=== PATIENT | male | born 1975 | race Caucasian/White ===

== ENCOUNTER 2017-03-28 19:33 | Emergency (ER) | payer OTHER ==
[~2017-03-28 19:33] MED LIST: ATARAX PO; BUPROPION HCL75 MG PO; CELEXA PO; CIPRO PO; COMBIVENT MININEB INH; ERYTHROMYCIN O3.5 GM OD; FLAGYL PO; HCTZ PO; HYDROCORTISONE30 G2 EXT; IRON1 TAB PO; KEFLEX PO; LEVAQUIN750 MG PO; LEVOTHYROXINE50 MCG PO; LORTAB 7.5-3251 EACH PO; PHENERGAN PO; RISPERIDONE1 MG PO
== END 2017-03-28 22:52 | disposition home or self-care (01) ==
LOC: SED 19:33
DX: T15.01XA Foreign body in cornea, right eye, initial encounter (principal); F17.210 Nicotine dependence, cigarettes, uncomplicated; Z98.890 Other specified postprocedural states; X58.XXXA Exposure to other specified factors, initial encounter; Y92.009 Unspecified place in unspecified non-institutional (private) residence as the place of occurrence of the external cause
CPT/HCPCS: 65220; 99283

== ENCOUNTER 2017-07-06 13:10 | Emergency (ER) | payer SELFPAY ==
[~2017-07-06] VITALS: Ht 177.8 cm; Wt 145.1 kg
--- NOTE | ~2017-07-06 | CR181 ---
[facility] A Service of [facility] & [facility] RADIOLOGY TEXT RESULTS PATIENT: CHERELLE ALSTON LOCATION: [facility] : 75 UNIT #: [id number] AGE: [address]: Spring Varela SEX: M ORDER DR: [id number] [place] [address] [place], [place] [address] [id number] E MR#: [id number] Acc #: [id number] NAME: CHERELLE ALSTON. : 1975 SEX: M STUDY DATE/TIME: 07/06/2017 14:22 UNIT: [facility] ROOM: STUDY DESCRIPTION: CR Lumbar Spine 2 or 3 Views Attending Physician: Spring Varela P.A.-C. Ordering Physician: Spring Varela P.A.-C. Primary Care Physician: Primary Care Physician No MEDICAL IMAGING REPORT This report is preliminary unless electronic signature is present EXAM Lumbar spine 07/06/2017 HISTORY Low back pain after fall out of bed two weeks ago. FINDINGS AP and lateral projections of the lumbar segment show good mineralization of both anterior and posterior elements. They are all anatomically normal without indication of fracture, dislocation, or malignant change of a sclerotic or lytic type. There is no congenital defect noted. The sacroiliac joints are normal. IMPRESSION Normal lumbar spine. Dictated by... Imer Caballero Jr., M.D. THIS IS AN ELECTRONICALLY VERIFIED REPORT Imer Caballero Jr., M.D. at 07/06/2017 10:34 PM ZONIA/almaz TD: 07/06/2017 15:52 JOB #: [id number] MEDICAL IMAGING REPORT Page 1 of 1 COPY
--- NOTE | ~2017-07-06 | CR172 ---
[facility] A Service of [facility] & [facility] RADIOLOGY TEXT RESULTS PATIENT: CHERELLE ALSTON LOCATION: [facility] : 75 UNIT #: [id number] AGE: [address]: Spring Varela SEX: M ORDER DR: [id number] [facility] [address] [place], [place] [address] [id number] E MR#: [id number] Acc #: [id number] NAME: CHERELLE ALSTON. : 1975 SEX: M STUDY DATE/TIME: 07/06/2017 14:21 UNIT: [facility] ROOM: STUDY DESCRIPTION: CR Knee 3 Views Lt Attending Physician: Spring Varela P.A.-C. Ordering Physician: Spring Varela P.A.-C. Primary Care Physician: No Primary Care Physician MEDICAL IMAGING REPORT This report is preliminary unless electronic signature is present EXAM Left knee, 07/06/2017. INDICATIONS Knee pain for 2 weeks after falling out of bed. FINDINGS Three views of the left knee were obtained. There is no fracture or malalignment. Joint effusion may be present. The exam is otherwise negative. IMPRESSION The joint effusion may be present. The knee is otherwise normal. Dictated by... Imer Caballero Jr., M.D. THIS IS AN ELECTRONICALLY VERIFIED REPORT Imer Caballero Jr., M.D. at 07/06/2017 10:34 PM ZONIA/norbert TD: 07/06/2017 15:52 JOB #: [id number] MEDICAL IMAGING REPORT Page 1 of 1 COPY
--- NOTE | ~2017-07-06 | US85 ---
[facility] A Service of [facility] & [facility] RADIOLOGY TEXT RESULTS PATIENT: CHERELLE ALSTON LOCATION: [facility] : 75 UNIT #: [id number] AGE: [address]: Spring Varela SEX: M ORDER DR: [id number] [facility] [address] [place], [place] [address] [id number] E MR#: [id number] Acc #: [id number] NAME: CHERELLE ALSTON. : 1975 SEX: M STUDY DATE/TIME: 07/06/2017 13:52 UNIT: [facility] ROOM: STUDY DESCRIPTION: [facility] Attending Physician: Spring Varela P.A.-C. Ordering Physician: Spring Varela P.A.-C. Primary Care Physician: Primary Care Physician No MEDICAL IMAGING REPORT This report is preliminary unless electronic signature is present EXAM Left lower extremity venous duplex 07/06/2017 HISTORY Left lower extremity pain for 2 weeks. Evaluate for deep vein thrombosis. History of lung carcinoma. TECHNIQUE Venous ultrasound examination of the left lower extremity was performed using grayscale, spectral Doppler and color flow Doppler imaging. FINDINGS The examination is negative. There is no evidence of left lower extremity deep venous thrombus from the groin to the lower calf. Visualized greater saphenous vein is also patent. IMPRESSION Negative examination. No evidence of left lower extremity deep venous thrombosis. Dictated by... Ignacio Sevilla M.D. THIS IS AN ELECTRONICALLY VERIFIED REPORT Ignacio Sevilla M.D. at 07/07/2017 8:38 AM VINCENZO/almaz TD: 07/06/2017 15:16 JOB #: [id number] MEDICAL IMAGING REPORT Page 1 of 1 COPY
== END 2017-07-06 15:15 | disposition home or self-care (01) ==
LOC: CFTX 13:10 → CED 13:10 → CFTX 14:58
DX: S83.92XA Sprain of unspecified site of left knee, initial encounter (principal); F17.210 Nicotine dependence, cigarettes, uncomplicated; W06.XXXA Fall from bed, initial encounter
CPT/HCPCS: 29530; 72100; 73562; 93971; 99284